=== PATIENT | female | born 1955 | race Caucasian/White ===

== ENCOUNTER 2017-01-18 16:59 | Emergency (ER) | payer OTHER ==
--- NOTE | ~2017-01-18 | CR126 ---
[facility] A Service of [facility] RADIOLOGY TEXT RESULTS PATIENT: LILY DUARTE LOCATION: SED : 57 UNIT #: [id number] AGE: [address]: Augustina Gary APRN SEX: F ORDER DR: [id number] [address] [address] [id number] E MR#: [id number] Acc #: [id number] NAME: LILY DUARTE : 1955 SEX: F STUDY DATE/TIME: 01/18/2017 18:03 UNIT: SED ROOM: STUDY DESCRIPTION: CR Foot Complete Min 3 View Lt Attending Physician: Augustina Gary A.P.R.N. Referring Physician: Augustina Gary A.P.R.N. Ordering Physician: Augustina Gary A.P.R.N. Primary Care Physician: Denver Arambula M.D. MEDICAL IMAGING REPORT This report is preliminary unless electronic signature is present. EXAM Left foot 3 views HISTORY Diabetic with puncture wound left-sided healed x3 weeks. COMPARISON Comparison left foot films 05/01/2016 FINDINGS Three views of the left foot demonstrates postsurgical changes from transmetatarsal amputation of the first through fifth metatarsals. Apparent well-healed wound, but there are findings suggesting soft tissue swelling over the distal stump. At the plantar aspect of the foot adjacent to the calcaneus, there is a 1.3 cm lucent soft tissue lesion compatible with ulcer. This does not clearly extend to the bone, and there is no definite osteolysis or periostitis. No definite soft tissue gas is identified other than the ulcer. Ankle and subtalar joint unremarkable. Arterial vascular calcifications noted. IMPRESSION 1. A 1.3 cm lucency within the heel soft tissues compatible with a sizeable ulcer but no definite underlying osteomyelitis identified. 2. Postsurgical changes from transmetatarsal amputation of the forefoot with a moderate amount of soft tissue swelling edema overlying the distal stump. Dictated by.Yaritza Reid M.D. [facility] A Service of [facility] RADIOLOGY TEXT RESULTS PATIENT: LILY DUARTE LOCATION: SED : 57 UNIT #: [id number] AGE: [address]: Augustina Gary APRN SEX: F ORDER DR: THIS IS AN ELECTRONICALLY VERIFIED REPORT Omaira Reid M.D. at 01/21/2017 6:06 AM Carlee TD: 01/18/2017 22:31 JOB #: [id number] MEDICAL IMAGING REPORT Page 1 of 1
--- NOTE | ~2017-01-18 | EKG ---
PATIENT: LILY DUARTE UNIT #: [id number] Ventricular Rate: 77 BPM Atrial Rate: 77 BPM P-R Interval: 148 ms QRS Duration: 72 ms Q-T Interval: 380 ms QTC Calculation(Bezet): 430 ms P Preston: 6 degrees Calculated R Preston: -6 degrees Calculated T Preston: 43 degrees Diagnosis Line: Normal sinus rhythm Diagnosis Line: Low voltage QRS Diagnosis Line: Borderline ECG Diagnosis Line: When compared with ECG of 21-AUG-2015 15:38, Diagnosis Line: No significant change was found Diagnosis Line: Confirmed by ILYA ESPINAL MD ([id number]) on Diagnosis Line: 01/23/2017 8:50:13 AM INTERPRETING MD: KYLIE BIGGS
[~2017-01-18 16:59] MED LIST: ACETAMINOPHEN325 MG PO; ACTOS/METFORMIN; ALBUTEROL17 GM INH; ALPRAZOLAM PO; ALPRAZOLAM1 MG PO; ASPIRIN81 M2 PO; AVANDIA; BACLOFEN10 MG PO; BACTROBAN22 GM TOP; BYDUREON P2 MG/0.65 SQ; CEFTRIAXONE2 GM IV; CYMBALTA; CYMBALTA PO; DARVOCET-N 1001 TA2 PO; DAZIDOX10 MG PO; DIAZEPAM PO; DICLOFENAC PO; ELIQUIS5 MG PO; FARXIGA5 MG PO; FISH OIL300 MG PO; FLEXERIL; FLEXERIL10 MG PO; GABAPENTIN300 M2 PO; GABAPENTIN400 M2 PO; GABAPENTIN800 MG PO; GLUCOTROL PO; HUMALOG100 U/ML SQ; HUMALOG100 U/ML SUBQ; HYDROCODON-ACE1 EAC5 PO; JANUVIA PO; KEFLEX PO; KEFZOL2 GM IV; LANTUS100 U/ML SUBQ; LANTUS100 UNITS/ SQ; LANTUS100 UNITS/ SUBQ; LASIX PO; LASIX20 MG PO; LEVEMIR SUBQ; LEXAPRO; LIDODERM30 EA TD; LISINOPRIL PO; LISINOPRIL10 MG PO; LISINOPRIL20 MG PO; LORTAB 10/500 T1 TAB PO; METFORMIN; METFORMIN HCL1000 M1 PO; METFORMIN HCL750 MG PO; METFORMIN PO; MS CONTIN15 MG PO; NEURONTIN PO; NEURONTIN600 MG PO; NEURONTIN800 MG PO; NORFLEX100 M1 PO; NOVOLOG100 U/ML SUBQ; ONDANSETRON ODT4 MG PO; OXYCODONE HCL10 MG PO; PERCOCET 10/3251 TAB PO; PREDNISONE5 M1 PO; PREMARIN PO; PRILOSEC PO; PRILOSEC20 M1 PO; PRILOSEC20 MG PO; PRINIVIL20 M1 PO; RELAFEN500 MG PO; REQUIP1 MG PO; REQUIP2 MG PO; ROBITUSSIN A-C S5 ML PO; SIMVASTATIN40 MG PO; TOPAMAX; TOPAMAX200 MG PO; TRAZODONE PO; TYLOX 5/500 CAP1 CAP PO; ULTRAM PO; VICODIN 5/500 T1 TAB PO; VICODIN PO; VOLTAREN50 MG PO; VOLTAREN75 MG PO; XANAX2 MG PO; ZANTAC; ZOCOR PO; ZOFRAN ODT4 MG PO; ZOFRANODT PO; ZOLOFT PO; ZOLOFT50 MG PO; [UNRECOGNIZED DRUG - OTHER] PO; [UNRECOGNIZED DRUG - REMARK] PO
[2017-01-18 17:45] LABS: BASOPHIL% 0.5 % (0-2.5); DIFF IND NO; EOSINOPHIL# 0.2 X10e3 (0-0.7); EOSINOPHIL% 2.7 % (0.0-7.0); HEMATOCRIT 40.7 % (35.0-45.0); HEMOGLOBIN 13.4 gm/dL (12.0-16.0); LYMPHOCYTE# 1.8 X10e3 (1.0-3.5); LYMPHOCYTE% 23.6 % (17.0-45.0); MEAN CELL VOLUME 90.2 FL (83-96); MEAN CORPUSCULAR HEMOGLOBIN 29.6 PG (28-34); MEAN CORPUSCULAR HGB CONC 32.9 g/dL (30-36); MEAN PLATELET VOLUME 10.8 FL (6.5-11.5); MONOCYTE# 0.4 X10e3 (0-1.0); MONOCYTE% 5.8 % (3.0-12.0); NEUTROPHIL# 5.1 X10e3 (1.5-7.1); NEUTROPHIL% 67.4 % (40-75); PLATELET COUNT 168 X10e3 (140-420); RED BLOOD COUNT 4.51 X10e (3.90-5.30); RED CELL DISTRIBUTION WIDTH 14.2 % (11.0-15.5); WHITE BLOOD COUNT 7.6 X10e3 (4.0-10.5)
[2017-01-18 18:10] LABS: BILIRUBIN,TOTAL 0.5 mg/dL (0.2-2.0); BUN/CREATININE RATIO 17.64; CALCIUM SERUM 8.9 mg/dL (8.4-10.2); CREATININE SERUM 1.7 mg/dL (0.6-1.4); GLOM FILT RATE Estimated 32.2 mL/min (>60); PROTEIN TOTAL SERUM 7.3 g/dL (6.0-8.3)
[2017-01-18 18:13] LABS: POTASSIUM 5.9 mmol/L (3.5-5.1)
[2017-01-18 18:45] LABS: URINE SOURCE CLEAN CATCH
[2017-01-18 18:48] LABS: URINE APPEARANCE CLEAR; URINE BILIRUBIN NEG (NEG); URINE BLOOD NEG (NEG); URINE COLOR YELLOW; URINE GLUCOSE 300 MG/DL (NORM); URINE KETONE NEG (NEG); URINE LEUKOCYTE ESTERASE NEG (NEG); URINE NITRATE NEG (NEG); URINE PH 5.5 (5-8); URINE PROTEIN NEG (NEG); URINE UROBILINOGEN 0.2 MG/DL (NORM)
[2017-01-18 18:51] LABS: MICRO INDICATED? NO
[2017-01-18 19:48] LABS: CALCIUM SERUM 8.6 mg/dL (8.4-10.2); CREATININE SERUM 1.5 mg/dL (0.6-1.4); GLOM FILT RATE Estimated 37.5 mL/min (>60)
[2017-01-18 19:50] LABS: POTASSIUM 5.6 mmol/L (3.5-5.1)
== END 2017-01-18 21:39 | disposition home or self-care (01) ==
LOC: SED 16:59
PROVIDERS: Nurse Practitioner Family
DX: E11.621 Type 2 diabetes mellitus with foot ulcer (principal); E11.65 Type 2 diabetes mellitus with hyperglycemia; K21.9 Gastro-esophageal reflux disease without esophagitis; Z79.84 Long term (current) use of oral hypoglycemic drugs; Z79.899 Other long term (current) drug therapy
CPT/HCPCS: 36415; 73630; 80048; 80053; 81003; 82010; 82947; 83605; 85025; 93005; 96361; 96365; 96375; 99284

== ENCOUNTER 2017-02-19 17:29 | Emergency (ER) | payer OTHER ==
--- NOTE | ~2017-02-19 | CR253 ---
[facility] A Service [facility] RADIOLOGY TEXT RESULTS PATIENT: LILY DUARTE LOCATION: SED : 57 UNIT #: [id number] AGE: [address]: JORGE THOMAS SEX: F ORDER DR: [id number] [place] [id number] E MR#: [id number] Acc #: [id number] NAME: LILY DUARTE : 1955 SEX: F STUDY DATE/TIME: 02/19/2017 19:01 UNIT: SED ROOM: STUDY DESCRIPTION: CR Tibia and Fibula 2 Views Rt Attending Physician: Jorge Thomas Aprn Ordering Physician: Jorge Thomas Aprn Primary Care Physician: Denver Arambula M.D. MEDICAL IMAGING REPORT This report is preliminary unless electronic signature is present. EXAM Two views of the right tibia and fibula DATE 02/19/2017 HISTORY Right tibia and fibula pain and anterior knee pain after falling off her porch today. COMPARISON None. FINDINGS No acute fracture. Knee and ankle joints appear appropriately aligned. Mild degenerative changes are present in the knee manifest as patellofemoral and medial compartment joint space narrowing and tricompartment marginal osteophyte formation. Mild suprapatellar joint effusion. There is a small plantar calcaneal spur. No retained radiopaque foreign body is seen in the soft tissues. IMPRESSION 1. No acute abnormality of the right tibia and fibula. Dictated by... Serenity Trujillo M.D. THIS IS AN ELECTRONICALLY VERIFIED REPORT Serenity Trujillo M.D. at 02/20/2017 10:40 AM [facility] A Service [facility] RADIOLOGY TEXT RESULTS PATIENT: LILY DUARTE LOCATION: SED : 57 UNIT #: [id number] AGE: [address]: JORGE THOMAS SEX: F ORDER DR: TD: 02/20/2017 01:56 JOB #: [id number] MEDICAL IMAGING REPORT Page 1 of 1
--- NOTE | ~2017-02-19 | CR107 ---
[facility] A Service [facility] RADIOLOGY TEXT RESULTS PATIENT: LILY DUARTE LOCATION: SED : 57 UNIT #: [id number] AGE: [address]: JORGE THOMAS SEX: F ORDER DR: [id number] [place] [id number] E MR#: [id number] Acc #: [id number] NAME: LILY DUARTE : 1955 SEX: F STUDY DATE/TIME: 02/19/2017 19:01 UNIT: SED ROOM: STUDY DESCRIPTION: CR Femur 2 Views Rt Attending Physician: Jorge Thomas Aprn Ordering Physician: Jorge Thomas Aprn Primary Care Physician: Denver Arambula M.D. MEDICAL IMAGING REPORT This report is preliminary unless electronic signature is present. EXAM Two views right femur. DATE: 02/19/2017 HISTORY Right femur pain today after falling off of a porch from her home. COMPARISON Right femur radiographs 09/14/2015. FINDINGS No acute femur fracture is seen. Hip and knee joints appear appropriately aligned. Posterior patellar osteophytes are present. There is mild medial compartment joint space narrowing of the knee. IMPRESSION 1. Mild degenerative changes of the right knee. 2. No acute abnormality of the right femur. 3. Small suprapatellar joint effusion, not included in the body of the report. Dictated by... Serenity Trujillo M.D. THIS IS AN ELECTRONICALLY VERIFIED REPORT Serenity Trujillo M.D. at 02/20/2017 10:40 AM Hola/jackie TD: 02/20/2017 02:01 [facility] A Service [facility] RADIOLOGY TEXT RESULTS PATIENT: LILY DUARTE LOCATION: SED : 57 UNIT #: [id number] AGE: [address]: JORGE THOMAS SEX: F ORDER DR: KATHRINE #: [id number] MEDICAL IMAGING REPORT Page 1 of 1
--- NOTE | ~2017-02-19 | CR173 ---
[facility] A Service [facility] RADIOLOGY TEXT RESULTS PATIENT: LILY DUARTE LOCATION: SED : 57 UNIT #: [id number] AGE: [address]: JORGE THOMAS SEX: F ORDER DR: [id number] [place] [id number] E MR#: [id number] Acc #: [id number] NAME: LILY DUARTE : 1955 SEX: F STUDY DATE/TIME: 02/19/2017 19:01 UNIT: SED ROOM: STUDY DESCRIPTION: CR Knee 3 Views Rt Attending Physician: Jorge Thomas Aprn Ordering Physician: Jorge Thomas Aprn Primary Care Physician: Denver Arambula M.D. MEDICAL IMAGING REPORT This report is preliminary unless electronic signature is present. EXAM Three views of the right knee. DATE 02/19/2017 HISTORY Right knee pain anteriorly after falling off porch today. COMPARISON Right knee radiographs 09/14/2015 FINDINGS There is mild patellofemoral compartment joint space narrowing with articular osteophyte formation. No dislocation. No fracture. Mild medial compartment joint space narrowing with lateral marginal compartment osteophyte formation. Small suprapatellar joint effusion is thought to be present. Vascular calcifications are present. IMPRESSION Mild medial and patellofemoral compartment degenerative change with probable small suprapatellar joint effusion. No acute osseous abnormality. Dictated by... Serenity Trujillo M.D. THIS IS AN ELECTRONICALLY VERIFIED REPORT Serenity Trujillo M.D. at 02/20/2017 10:40 AM [facility]/nena TD: 02/20/2017 01:54 [facility] A Service [facility] RADIOLOGY TEXT RESULTS PATIENT: LILY DUARTE LOCATION: SED : [birth year] UNIT #: [id number] AGE: [address]: JORGE THOMAS SEX: F ORDER DR: KATHRINE #: [id number] MEDICAL IMAGING REPORT Page 1 of 1
== END 2017-02-19 20:33 | disposition home or self-care (01) ==
LOC: SED 17:29
DX: S83.91XA Sprain of unspecified site of right knee, initial encounter (principal); S70.11XA Contusion of right thigh, initial encounter; S80.11XA Contusion of right lower leg, initial encounter; E78.5 Hyperlipidemia, unspecified; I10 Essential (primary) hypertension; E11.9 Type 2 diabetes mellitus without complications; Z79.899 Other long term (current) drug therapy; Z88.8 Allergy status to other drugs, medicaments and biological substances; Z79.4 Long term (current) use of insulin; Z79.84 Long term (current) use of oral hypoglycemic drugs; X50.1XXA Overexertion from prolonged static or awkward postures, initial encounter; W17.89XA Other fall from one level to another, initial encounter; Y92.009 Unspecified place in unspecified non-institutional (private) residence as the place of occurrence of the external cause
CPT/HCPCS: 29530; 73552; 73562; 73590; 96372; 99283; J1885